=== PATIENT | male | born 1935 | race Caucasian/White ===

== ENCOUNTER → 2019-09-30 13:40 | Outpatient (BNVA) | payer MEDICARE, SELFPAY | PROVIDERS: PCP Family Medicine; Referring Provider Family Medicine; Visit Provider Nurse Practitioner Family | DX: R31.9 Hematuria, unspecified (principal); R97.20 Elevated prostate specific antigen [PSA]; R39.9 Unspecified symptoms and signs involving the genitourinary system | CPT/HCPCS: 81001 ==

== ENCOUNTER → 2019-11-10 10:54 | Outpatient (BNVA) | payer MEDICARE, SELFPAY | PROVIDERS: PCP Family Medicine; Visit Provider Urology | DX: R97.20 Elevated prostate specific antigen [PSA] (principal); R31.9 Hematuria, unspecified; N40.1 Benign prostatic hyperplasia with lower urinary tract symptoms | CPT/HCPCS: 81001; 84153 ==

== ENCOUNTER 2019-12-28 11:20 | Emergency (ER) | payer MEDICARE, SELFPAY ==
[2019-12-28 11:39] VITALS: BP 160/76; PULSE 90; RESP 14; TEMP 37.1; O2SAT 98; BMI 25.0
--- NOTE | 2019-12-28 11:43 | XR_ITS ---
WS: [id number] Exam: XR chest 2V* [id number] Date/Time of Exam: 12/28/2019 12:00 PM Reason For Exam: COUGH Findings: No priors. The lungs are clear and fully expanded. Normal cardiomediastinal structures and bony elements. Calcif ied mediastinal lymph nodes are noted. XR/XR chest 2V* [id number] IMPRESSION: 1. No acute cardiopulmonary finding.
--- NOTE | 2019-12-28 13:00 | ED_ITS ---
HPI - General Adult General: Chief complaint: General Medical Stated complaint: Upper respristory Time Seen by Provider: 12/28/19 12:58 Source: patient Mode of arrival: ambulatory Limitations: no limitations History of Present Illness: HPI narrative: 84-year-old male states been having sinus pain and nasal congestion over the last week. He states he gets sinus infections every year. He has been taking Mucinex [id number] with minimal improvement. He states he typically has to take azithromycin. He denies any fever. Has had a very slight cough. Denies any worsening or improving factors. He denies any chest pain is no distress. Associated symptoms: Deny chest pain, dyspnea, headache(s), nausea, rash or vomiting Review of Systems Const: Denies: fever(s), chills, body aches or change in appetite Eyes: Denies: blurry vision or eye discomfort ENMT: Reports: nasal congestion and sinus pain Card: Denies: chest pain Resp: Denies: dyspnea GI: Denies: abdominal pain, nausea, vomiting or diarrhea : Denies: dysuria Musc: Denies: neck pain or back pain Skin/Breast: Denies: rash Neuro: Denies: headache(s) Psych: Denies: depression Shawn/Lymph: Denies: easy bruising All/Imm: Denies: urticaria PFSH ED PFSH: Medical History Elevated PSA Hematuria Hypercholesteremia Family History Other Cancer Stroke Social History Smoking and tobacco status: never smoked Alcohol intake: never Adopted: No Caregiver/support person: No Lives independently: No Household members: children Marital status: / Current occupational status: retired Physical Exam Const: COMMON NORMALS: no acute distress, patient oriented x3 and healthy appearing HENMT: COMMON NORMALS: normocephalic and atraumatic HEAD & SCALP: normocephalic and atraumatic Eye: COMMON NORMALS: Equal, round and reactive pupils present and EOMs intact bilaterally PUPIL: Yes Equal, round and reactive pupils present Neck/C-Spine: COMMON NORMALS: full ROM and supple Chest: COMMONS NORMALS: normal inspection of the chest and normal palpation of entire chest wall Resp: COMMON NORMALS: normal respiratory effort, No retractions, No use of accessory muscles and clear to auscultation bilaterally AUSCULTATION: clear to auscultation bilaterally Cardio: COMMON NORMALS: regular rate, regular rhythm and No murmurs present (Cardio) RATE: regular rate RHYTHM: regular rhythm GI: COMMON NORMALS: Normal to inspection, nondistended, normoactive bowel sounds present, Soft to palpation, non-tender and no masses PALPATION: Yes Soft to palpation Extremity: COMMON NORMALS: normal to inspection and full ROM Neuro: COMMON NORMALS: patient oriented x3, moves all extremities and no focal motor deficits Psych: COMMON NORMALS: mental status grossly normal, Normal thought process present and cooperative THOUGHT PROCESS: Normal thought process present Skin: COMMON NORMALS: no rashes or lesions noted and no wounds GENERAL SKIN EXAM: no rashes or lesions noted Course Vital Signs: Vital signs: Vital Signs Temperature 98.8 F 12/28/19 11:39 Pulse Rate 90 12/28/19 11:39 Respiratory Rate 14 12/28/19 11:39 Blood Pressure 160/76 12/28/19 11:39 Pulse Oximetry 98 12/28/19 11:39 MDM - General Adult MDM Narrative: Medical decision making narrative: Patient presents with a likely sinus infection. Patient's x-ray here is negative and he is no signs of Covid. We will start him on azithromycin he is stable for discharge. He is to follow-up with his primary care doctor in 3 to 5 days and return if worsening. Imaging Data^: CXR: Attestation: I personally reviewed and interpreted this imaging study as follows: Radiologist's impression: [address] [address] XRay Report Signed Patient: Chance Lord Unit #: [id number] : [id number] Age/Sex: 84 / M ADM Date: 12/28/19 Loc: ER Room/Bed: Attending Dr: Ordering Provider/Ordering MD: Yodit Hardy MD Date of Service: 12/28/19 Procedure(s): XR chest 2V* [id number] Accession Number(s): [id number] Report Number: [id number] WS: [id number] Exam: XR chest 2V* [id number] Date/Time of Exam: 12/28/2019 12:00 PM Reason For Exam: COUGH Findings: No priors. The lungs are clear and fully expanded. Normal cardiomediastinal structures and bony elements. Calcified mediastinal lymph nodes are noted. XR/XR chest 2V* [id number] IMPRESSION: 1. No acute cardiopulmonary finding. Discharge Plan Discharge Patient Disposition: Home Clinical Impression: Sinusitis Qualifiers: Sinusitis location: frontal Chronicity: acute Condition: Stable Prescriptions: New azithromycin 250 mg tablet See Rx Instructions .ROUTE .COMPLEX Qty: 6 RF: 0 No Action aspirin [Adult Low Dose Aspirin] 81 mg tablet,delayed release (DR/EC) 81 mg PO DAILY RF: 0 omega-3 fatty acids 1,000 mg capsule 1,000 mg PO DAILY RF: 0 alprazolam 0.25 mg tablet 0.25 mg PO .AT NIGHT PRN (Reason: sleep) RF: 0 tamsulosin 0.4 mg capsule 0.4 mg PO DAILY RF: 0 Discharge Orders: Discharge Order (Routine); Ordered 12/28/19 Ordered By: Yodit Hardy Referrals: Graeme Louis MD [Primary Care Provider] - 1-3 days Discharge Diet: Advance as tolerated Discharge Activity: Resume usual activity Patient Instructions: Sinusitis (ED) Coding Level of Care Code ED Director Of Content And Programming for Pearl Mcgowan
== END 2019-12-28 13:07 | disposition home or self-care (01) ==
PROVIDERS: Emergency Provider Emergency Medicine; PCP Family Medicine
DX: J01.10 Acute frontal sinusitis, unspecified (principal); Z79.82 Long term (current) use of aspirin
CPT/HCPCS: 12345; 71046; 99281; 99282

== ENCOUNTER 2020-01-01 00:54 | Emergency (ER) | payer MEDICARE, SELFPAY ==
[2020-01-01] VITALS (7 sets, daily range): BP systolic 122–134; BP diastolic 63–81; PULSE 68–87; RESP 16–18; TEMP 36.5; O2SAT 94–97; BMI 25.0
[2020-01-01] MEDS: ondansetron 2 mg/ML SDV 2 mL 4 MG IVP (01:22)
--- NOTE | 2020-01-01 01:22 | ED_ITS ---
HPI - Abdominal Pain General: Chief Complaint: Abdominal Pain Stated Complaint: stomach pain, ingested soap about a week ago Time Seen by Provider: 01/01/20 01:09 Source: patient Mode of arrival: ambulatory Limitations: no limitations History of Present Illness: HPI narrative: Mr. Lord is a very nice 84-year-old male who comes in complaining of abdominal pain for about a week and a half. He states he accidentally swallowed a mouthful of hand soap thinking it was mouthwash and it burned the back of his throat and mouth. Since that time though the patient has progressively gotten worse with just generalized abdominal pain. He denies any nausea or vomiting and he denies diarrhea. States he has had a fever up to 103 but he felt this was due to his sinuses. He did take a Z-Simba for sinusitis. Denies any headache, neck pain or stiffness, chest pain, shortness of breath, cough, loss of sense of taste or smell. Patient denies any back pain or burning when he urinates. He states that he has no appetite so he is hardly been eating or drinking anything secondary to his abdominal pain. He is unaware of any other exacerbating or alleviating factors and he denies any other complaints. Associated Symptoms: Denies chills, coffee ground emesis, constipation, GI cramping, diarrhea, dysuria, fever(s), heartburn, hematochezia, hematuria, hematemesis, melena, nausea, syncope and vomiting Review of Systems Const: Denies: fever(s), chills, body aches, fatigue, malaise or diaphoresis Eyes: Denies: change in vision, blurry vision, photophobia, eye discomfort, eye discharge, eye redness or yellow eyes ENMT: Denies: throat pain, odynophagia, hoarseness, swelling of lips/tongue, ear or mastoid pain, ear discharge, change in hearing or nasal discharge Card: Denies: chest pain, palpitations, irregular heart rhythm, edema, lightheadedness, syncope, pre-syncope, dyspnea on exertion or orthopnea Resp: Denies: dyspnea, productive cough, non-productive cough, wheezing, hemoptysis or chest congestion GI: Denies: abdominal pain, nausea, vomiting, hematemesis, coffee ground emesis, heartburn, diarrhea, constipation, GI cramping, hematochezia or melena : Denies: flank pain, dysuria, urinary frequency, urinary urgency or hematuria Musc: Denies: neck pain, back pain, extremity pain, extremity swelling, joint pain, joint swelling, joint redness, joint warmth or joint stiffness Skin/Breast: Denies: rash, pruritus, erythema, skin pain or skin tenderness Neuro: Denies: headache(s), numbness in extremities, weakness in extremities, sensory changes, lack of coordination, difficulty walking, dizziness, vertigo, confusion, Slurred speech present or seizure-like activity Shawn/Lymph: Denies: easy bruising, easy bleeding, petechiae, purpura or enlarged lymph nodes All/Imm: Denies: urticaria, throat swelling, tongue swelling, facial swelling or acute wheezing PFSH ED PFSH: Medical History Elevated PSA Hematuria Hypercholesteremia Family History Other Cancer Stroke Social History Smoking and tobacco status: never smoked Alcohol intake: never Adopted: No Caregiver/support person: No Lives independently: No Household members: children Marital status: / Current occupational status: retired Physical Exam Const: COMMON NORMALS: no acute distress, patient oriented x3, no limitations and alert GENERAL APPEARANCE: cooperative HENMT: COMMON NORMALS: normocephalic, atraumatic, external ears normal, EAC's normal and Normal external nose present HEAD & SCALP: normal to inspection, normocephalic and atraumatic FACE & SINUS: normal facial exam and face symmetric NOSE: Normal external nose present and Normal nares present EXTERNAL EAR: Yes external ears normal EXTERNAL AUDITORY CANAL: EAC's normal MOUTH: Normal oral and palatal mucosa present, lip normal and tongue normal Eye: COMMON NORMALS: Equal, round and reactive pupils present and conjunctivae normal GENERAL EYE: appearance normal, both eyes and all related structures ALIGNMENT: Yes alignment normal PERIORBITAL: periorbital findings normal EYELID: eyelids normal CONJUNCTIVA: Yes conjunctivae normal SCLERA: sclerae normal PUPIL: Yes Equal, round and reactive pupils present Neck/C-Spine: COMMON NORMALS: full ROM, no lymphadenopathy, supple, no meningeal signs and no JVD GENERAL: Yes normal visual inspection and Yes trachea midline Chest: COMMONS NORMALS: normal inspection of the chest and normal palpation of entire chest wall Resp: COMMON NORMALS: normal respiratory effort, No retractions, No use of accessory muscles and clear to auscultation bilaterally EFFORT & INSPECTION: Yes able to speak in complete sentences and Yes symmetric chest movement AUSCULTATION: clear to auscultation bilaterally, no crackles, no rales, no rhonchi and no wheezes Cardio: COMMON NORMALS: no JVD, regular rate, regular rhythm, S1 normal heart sound present and S2 normal heart sound present RATE: regular rate RHYTHM: regular rhythm HEART SOUNDS: S1 normal heart sound present, S2 normal heart sound present, no click, no gallops, no murmurs and no rubs GI: COMMON NORMALS: Soft to palpation and No hepatosplenomegaly present PALPATION: Yes Soft to palpation, Yes Tenderness to palpation present (GI), No Guarding due to palpation present (GI), No Rigid due to palpation, Yes No hepatosplenomegaly present, No Hernia present, No Palpable mass present and No Pulsatile mass present : COMMON NORMALS: Yes no CVA tenderness BLADDER/KIDNEY EXAM: Yes no CVA tenderness Back/Pelvis: COMMON NORMALS: no CVA tenderness, thoracic and lumbar spine normal to inspection, no thoracic nor lumbar tenderness and thoraco-lumbar ROM normal Extremity: COMMON NORMALS: normal to inspection, full ROM, capillary refill normal, no joint enlargement, no clubbing, cyanosis or edema and no calf tenderness Neuro: COMMON NORMALS: patient oriented x3, CN's II-XII intact bilaterally, moves all extremities, no focal motor deficits and no sensory deficits noted SENSORIUM/ORIENTATION: Yes alert MENINGEAL SIGNS: Yes no meningeal signs SPEECH: speech normal Psych: COMMON NORMALS: mental status grossly normal, Normal thought process present, cooperative, normal affect, speech normal and activity/motor behavior normal SPEECH: Yes normal speech THOUGHT PROCESS: Normal thought process present Skin: COMMON NORMALS: no rashes or lesions noted, turgor normal, no jaundice, no petechiae and no mottling GENERAL SKIN EXAM: no rashes or lesions noted and turgor normal Course Vital Signs: Vital signs: Vital Signs Temperature 97.7 F 01/01/20 01:03 Pulse Rate 76 01/01/20 04:36 Respiratory Rate 17 01/01/20 04:36 Blood Pressure 132/70 01/01/20 04:36 Pulse Oximetry 94 01/01/20 04:36 MDM - Abdominal Pain MDM Narrative: Medical decision making narrative: Chance is a very nice 84-year-old male comes in with multiple complaints. Ultimately his symptoms are felt to be due to the COVID-[address] reveals no evidence of PE and he only has mild pneumonitis. Patient was informed of the findings and he is surprised. He is not had a fever, cough, sore throat or shortness of breath. His biggest concern is he thought he was constipated. He still request something at home to help his bowels move. I will go and give him lactulose and I have instructed him to take it only as needed. We will send him home with a pulse oximeter and he understands to return if his pulse ox falls below 90%. This time he is in no acute distress and we have hydrated him here with IV fluids. I will send him home with nausea medicine as well. Lab Data: Attestation: I reviewed the patient's lab results. Labs: Lab Results 01/01/20 01/01/20 01/01/20 Range/Units 01:15 01:15 01:15 WBC 3.2 L (4.0-10.0) 10^3/ uL RBC 5.23 (4.1-5.3) 10^6/u L Hgb 15.6 (11.7-16.6) g/dL Hct 46.9 (42.0-52.0) % MCV 89.7 (80-94) fL MCH 29.8 (28.0-34.0) pg MCHC 33.3 (30.0-36.0) g/dL RDW 12.7 (12.1-15.1) % Plt Count 153 (130-400) 10^3/c mm MPV 9.0 (7.4-10.4) fL Neut % (Auto) 45.2 % Lymph % (Auto) 41.6 % [place] % (Auto) 11.7 % Eos % (Auto) 0.9 % Baso % (Auto) 0.3 % Neut # (Auto) 1.43 L (1.8-7.7) 10^3/u L Lymph # (Auto) 1.3 (0.8-4.8) 10^3/u L [place] # (Auto) 0.4 (0.2-0.9) 10^3/u L Eos # (Auto) 0.0 (0.0-0.8) 10^3/u L Baso # (Auto) 0.0 (0.0-0.1) 10^3/u L Nucleated RBC % (a uto) 0 % Nucleated RBCs # 0.0 /100WBC PT 13.60 (12.1-14.9) SECO NDS INR 1.01 (0.8-1.2) Fibrinogen 398 (174-498) mg/dL D-Dimer 0.71 H (0-0.59) ug/mIFE U Sodium 131 L (136-145) mmol/L Potassium 4.2 (3.5-5.1) mmol/L Chloride 96 L (98-107) mmol/L Carbon Dioxide 24 (22-29) mmol/L Anion Gap 15.2 (5-19) BUN 16 (8-23) mg/dL Creatinine 1.1 (0.7-1.2) mg/dL GFR Calculation Not Reportable Glucose 105 (65-115) mg/dL Calculated Osmolal ity 274 L (285-295) mOsm/k g Calcium 8.9 (8.5-10.5) mg/dL Magnesium 1.9 (1.7-2.3) mg/dL Total Bilirubin 1.1 (0.15-1.2) mg/dL AST 20 (0-40) U/L ALT 25 (0-41) U/L Alkaline Phosphata se 85 (40-130) IU/L Lactate Dehydrogen ase (135-225) U/L C-Reactive Protein (0.0-4.9) mg/L Total Protein 6.5 L (6.6-8.7) g/dL Albumin 4.2 (3.5-5.2) g/dL Globulin 2.3 (1.3-4.6) g/dL Lipase 25 (13-60) U/L Procalcitonin (0-0.5) ng/mL Urine Color (Yellow) Urine Appearance (CLEAR) Urine pH (5-7) Ur Specific Gravit y (1.005-1.030) Urine Protein (Negative) Urine Glucose (UA) (Normal) Urine Ketones (Negative) Urine Blood (Negative) Urine Nitrate (Negative) Urine Bilirubin (Negative) Urine Urobilinogen (Negative) mg/dL Ur Leukocyte Jessica ase (Negative) Urine RBC (0-2) /hpf Urine WBC (0-5) /hpf Ur Squamous Epith Cells (0-5) /hpf Amorphous Sediment Urine Bacteria (NONE) /hpf SARS-CoV-2 Ag (Rap id) (Negative) 01/01/20 01/01/20 01/01/20 Range/Units 01:15 01:30 04:15 WBC (4.0-10.0) 10^3/ uL RBC (4.1-5.3) 10^6/u L Hgb (11.7-16.6) g/dL Hct (42.0-52.0) % MCV (80-94) fL MCH (28.0-34.0) pg MCHC (30.0-36.0) g/dL RDW (12.1-15.1) % Plt Count (130-400) 10^3/c mm MPV (7.4-10.4) fL Neut % (Auto) % Lymph % (Auto) % [place] % (Auto) % Eos % (Auto) % Baso % (Auto) % Neut # (Auto) (1.8-7.7) 10^3/u L Lymph # (Auto) (0.8-4.8) 10^3/u L [place] # (Auto) (0.2-0.9) 10^3/u L Eos # (Auto) (0.0-0.8) 10^3/u L Baso # (Auto) (0.0-0.1) 10^3/u L Nucleated RBC % (a uto) % Nucleated RBCs # /100WBC PT (12.1-14.9) SECO NDS INR (0.8-1.2) Fibrinogen (174-498) mg/dL D-Dimer (0-0.59) ug/mIFE U Sodium (136-145) mmol/L Potassium (3.5-5.1) mmol/L Chloride (98-107) mmol/L Carbon Dioxide (22-29) mmol/L Anion Gap (5-19) BUN (8-23) mg/dL Creatinine (0.7-1.2) mg/dL GFR Calculation Glucose (65-115) mg/dL Calculated Osmolal ity (285-295) mOsm/k g Calcium (8.5-10.5) mg/dL Magnesium (1.7-2.3) mg/dL Total Bilirubin (0.15-1.2) mg/dL AST (0-40) U/L ALT (0-41) U/L Alkaline Phosphata se (40-130) IU/L Lactate Dehydrogen ase 154 (135-225) U/L C-Reactive Protein 5.1 H (0.0-4.9) mg/L Total Protein (6.6-8.7) g/dL Albumin (3.5-5.2) g/dL Globulin (1.3-4.6) g/dL Lipase (13-60) U/L Procalcitonin 0.06 (0-0.5) ng/mL Urine Color Yellow (Yellow) Urine Appearance Sl hazy (CLEAR) Urine pH 6.5 (5-7) Ur Specific Gravit y 1.010 (1.005-1.030) Urine Protein Neg (Negative) Urine Glucose (UA) Norm (Normal) Urine Ketones Negative (Negative) Urine Blood Neg (Negative) Urine Nitrate Negative (Negative) Urine Bilirubin Neg (Negative) Urine Urobilinogen Norm (Negative) mg/dL Ur Leukocyte Jessica ase Negative (Negative) Urine RBC 0-4 H (0-2) /hpf Urine WBC 0-4 H (0-5) /hpf Ur Squamous Epith Cells 0-4 H (0-5) /hpf Amorphous Sediment Not Reportable Urine Bacteria Trace (NONE) /hpf SARS-CoV-2 Ag (Rap id) Positive H (Negative) Imaging Data ^: CTA chest With Abdomen Pelvis: Radiologist's impression: [address] [address] [address] Scan Report Signed Patient: Chance Lord #: [id number] : 1936Acct#:[id number] Age/Sex: 84 / MADM Date: 01/01/20 Loc: ERRoom/Bed: Attending Dr: Ordering Provider/Ordering MD: Sarah Jean-Baptiste DO Date of Service: 01/01/20 Procedure(s): CT angio chest w abd pel w con Accession Number(s): [id number] Report Number: [id number] PROCEDURE INFORMATION: Exam: CT Angiography Chest With Contrast Exam date and time: 01/01/2020 3:27 AM Age: 84 years old Clinical indication: Nausea; Abdominal pain; Generalized; Shortness of breath; Other: SOB; Patient HX: Covid+; Additional info: Shortness of breath abd pain TECHNIQUE: Imaging protocol: Computed tomographic angiography of the chest with intravenous contrast. 3D rendering (Not supervised by radiologist): MIP and/or 3D reconstructed images were created by the technologist. Radiation optimization: All CT scans at this facility use at least one of these dose optimization techniques: automated exposure control; mA and/or kV adjustment per patient size (includes targeted exams where dose is matched to clinical indication); or iterative reconstruction. Contrast material: OMNI 350; Contrast volume: 95 ml; Contrast route: INTRAVENOUS (IV); COMPARISON: CR XR chest 2V* [id number] 12/28/2019 12:09 PM RADIATION DOSE METRICS: Total DLP (mGy-cm): 1365.47 FINDINGS: Pulmonary arteries: Normal. No pulmonary emboli. Aorta: Unremarkable. No aortic aneurysm. No aortic dissection. Lungs: A calcified 0.8 mm granuloma seen in the right upper lobe. There are patchy ground-glass opacities present in the left upper lobe and linear and ground-glass opacities present in the lung bases bilaterally, findings that may represent a bilateral pneumonitis and/or atelectasis. There is some bilateral bronchiectasis. Pleural space: Unremarkable. No pneumothorax. No pleural effusion. Heart: Unremarkable. No cardiomegaly. No pericardial effusion. Lymph nodes: Unremarkable. No enlarged lymph nodes. Bones/joints: Unremarkable. No acute fracture. Soft tissues: Unremarkable. IMPRESSION: Patchy ground-glass opacities in the left upper lobe and some strandy and patchy ground-glass opacities present in the lung bases bilaterally, findings that could represent bilateral pneumonitis or atelectasis. Imaging features can be seen with COVID-19 pneumonia, though are nonspecific and can occur with a variety of infectious and noninfectious processes. (Reference: Asher) REFERENCES: Asher Baker et al., Radiological Society of [place] Expert Consensus Statement on Reporting Chest CT Findings Related to COVID-19. Endorsed by the Society of Thoracic Radiology, the [place] [employer], and RSNA. Published May 26, 2019. PROCEDURE INFORMATION: Exam: CT Abdomen And Pelvis With Contrast Exam date and time: 01/01/2020 3:27 AM Age: 84 years old Clinical indication: Nausea; Abdominal pain; Generalized; Shortness of breath; Other: SOB; Patient HX: Covid+; Additional info: Shortness of breath abd pain TECHNIQUE: Imaging protocol: Computed tomography of the abdomen and pelvis with intravenous contrast. Radiation optimization: All CT scans at this facility use at least one of these dose optimization techniques: automated exposure control; mA and/or kV adjustment per patient size (includes targeted exams where dose is matched to clinical indication); or iterative reconstruction. Contrast material: OMNI 350; Contrast volume: 95 ml; Contrast route: INTRAVENOUS (IV); COMPARISON: CR XR chest 2V* [id number] 12/28/2019 12:09 PM RADIATION DOSE METRICS: Total DLP (mGy-cm): 1365.47 FINDINGS: Mediastinal space: There is a small hiatal hernia present. Liver: Normal. No mass. Gallbladder and bile ducts: Normal. No calcified stones. No ductal dilation. Pancreas: Normal. No ductal dilation. Spleen: Punctate calcifications seen within the spleen compatible with calcified granulomas. Adrenal glands: Normal. No mass. Kidneys and ureters: There are small renal cortical cysts present on left, the largest measuring 1.7 cm. A solitary benign renal cysts seen in the lower pole of the right kidney measuring 1 cm. Stomach and bowel: Unremarkable. No obstruction. No mucosal thickening. Appendix: The appendix is visualized and is normal in configuration. Intraperitoneal space: Unremarkable. No free air. No significant fluid collection. Vasculature: Unremarkable. No abdominal aortic aneurysm. Lymph nodes: Unremarkable. No enlarged lymph nodes. Urinary bladder: Unremarkable as visualized. Reproductive: Unremarkable as visualized. Bones/joints: Unremarkable. No acute fracture. Soft tissues: Unremarkable. CT/CT angio chest w abd pel w con IMPRESSION: 1. Bilateral benign renal cysts, the largest seen the left measuring 1.7 cm. No further workup needed. 2. Small hiatal hernia 3. Normal appendix COMMENTS: Consistent with the [place] [employer]'s Incidental Findings Committee white paper (J Am Mil Radiol 2018): Any incidental renal lesion less than 1 cm or classified as too small to characterize, or any incidental cystic renal lesion characterized as simple-appearing, is likely benign. No follow-up imaging is recommended for these lesions per consensus recommendations based on imaging criteria. Radiation Dose CTDIVOL = (mGy): DLP = 1365.47~1365.47 (mGy-cm) Dictated By:Colton Smart MD Signed By:Colton Smart MDSigned Date/Time:01/01/20435 DD/ 4 Discharge Plan Discharge Patient Disposition: Home Clinical Impression: Viral pneumonitis Abdominal pain Qualifiers: Abdominal location: generalized Qualified Code(s): R10.84 - Generalized abdominal pain Condition: Stable Prescriptions: New Zofran 4 mg tablet 4 mg PO Q6H PRN (Reason: nausea and vomiting) Qty: 20 RF: 0 lactulose 10 gram/15 mL (15 mL) solution 10 gm PO DAILY PRN (Reason: constipation) Qty: 600 RF: 0 No Action aspirin [Adult Low Dose Aspirin] 81 mg tablet,delayed release (DR/EC) 81 mg PO DAILY RF: 0 omega-3 fatty acids 1,000 mg capsule 1,000 mg PO DAILY RF: 0 alprazolam 0.25 mg tablet 0.25 mg PO .AT NIGHT PRN (Reason: sleep) RF: 0 tamsulosin 0.4 mg capsule 0.4 mg PO DAILY RF: 0 azithromycin 250 mg tablet See Rx Instructions .ROUTE .COMPLEX Qty: 6 RF: 0 Discharge Orders: Discharge Order (Routine); Ordered 01/01/20 Ordered By: Sarah Jean-Baptiste Referrals: Graeme Louis MD [Primary Care Provider] - 1-3 days Discharge Diet: Advance as tolerated Discharge Activity: Increase activity as tolerated Patient Instructions: Viral Pneumonia (ED), Acute Abdominal Pain (ED) Activity Restrictions/Additional Instructions: Please return to the ER immediately for any of the signs or symptoms listed on your discharge instruction sheets, worsening/changing of your symptoms, you are not getting better as quickly as expected, or for ANY other cause or concerns. Monitor your pulse ox at home as you were shown by your nurse here. If your oxygen level goes below 90% you need to return to the ER for recheck. Be certain to keep yourself well-hydrated. Only use the lactulose to move your bowels as absolutely necessary. Follow-up with Dr. Louis or contact the health department about when you can come out of quarantine but until they clear you stay at home and keep yourself away from others as best as possible. Coding Level of Care Code ED [facility] Scientist for Chg Fwd Exam Comprehensive
[2020-01-01] MEDS: morphine 4 mg/mL SDV 1 mL IVP (01:23)
[2020-01-01] MEDS: sodium chloride 0.9% 1,000 ML 999 ML IV ×2 (01:34→04:15)
[2020-01-01 01:39] LABS: Basophils % 0.3 %; Eosinophils % 0.9 %; Hematocrit 46.9 % (42.0-52.0); Hemoglobin 15.6 g/dL (11.7-16.6); Lymphocytes # 1.3 10^3/uL (0.8-4.8); Lymphocytes % 41.6 %; Mean Corpuscular HGB Conc 33.3 g/dL (30.0-36.0); Mean Corpuscular Hemoglobin 29.8 pg (28.0-34.0); Mean Corpuscular Volume 89.7 fL (80-94); Monocytes # 0.4 10^3/uL (0.2-0.9); Monocytes % 11.7 %; Neutrophils # 1.43 10^3/uL (1.8-7.7); Neutrophils % 45.2 %; Nucleated Red Blood Cells % 0 %; Platelet Count 153 10^3/cmm (130-400); Red Blood Count 5.23 10^6/uL (4.1-5.3); Red Cell Distribution Width 12.7 % (12.1-15.1); White Blood Count 3.2 10^3/uL (4.0-10.0)
[2020-01-01 01:50] LABS: Alanine Aminotransferase 25 U/L (0-41); Albumin Level 4.2 g/dL (3.5-5.2); Alkaline Phosphatase 85 IU/L (40-130); Anion Gap 15.2 (5-19); Aspartate Amino Transferase 20 U/L (0-40); Blood Urea Nitrogen 16 mg/dL (8-23); Calcium 8.9 mg/dL (8.5-10.5); Carbon Dioxide 24 mmol/L (22-29); Chloride 96 mmol/L (98-107); Globulin 2.3 g/dL (1.3-4.6); Glucose 105 mg/dL (65-115); Lipase 25 U/L (13-60); Magnesium 1.9 mg/dL (1.7-2.3); Osmolality Calculated 274 mOsm/kg (285-295); Potassium 4.2 mmol/L (3.5-5.1); Sodium 131 mmol/L (136-145); Total Bilirubin 1.1 mg/dL (0.15-1.2); Total Protein 6.5 g/dL (6.6-8.7)
[2020-01-01 02:17] LABS: SARS Covid-2 Antigen Positive (Negative)
--- NOTE | 2020-01-01 03:14 | CTR_ITS ---
PROCEDURE INFORMATION: Exam: CT Angiography Chest With Contrast Exam date and time: 01/01/2020 3:27 AM Age: 84 years old Clinical indication: Nausea; Abdominal pain; Generalized; Shortness of breath; Other: SOB; Patient HX: Covid+; Additional info: Shortness of breath abd pain TECHNIQUE: Imaging protocol: Computed tomographic angiography of the chest with intravenous contrast. 3D rendering (Not supervised by radiologist): MIP and/or 3D reconstructed images were created by the technologist. Radiation optimization: All CT scans at this facility use at least one of these dose optimization techniques: automated exposure control; mA and/or kV adjustment per patient size (includes targeted exams where dose is matched to clinical indication); or iterative reconstruction. Contrast material: OMNI 350; Contrast volume: 95 ml; Contrast route: INTRAVENOUS (IV); COMPARISON: CR XR chest 2V* [id number] 12/28/2019 12:09 PM RADIATION DOSE METRICS: Total DLP (mGy-cm): 1365.47 FINDINGS: Pulmonary arteries: Normal. No pulmonary emboli. Aorta: Unremarkable. No aortic aneurysm. No aortic dissection. Lungs: A calcified 0.8 mm granuloma seen in the right upper lobe. There are patchy ground-glass opacities present in the left upper lobe and linear and ground-glass opacities present in the lung bases bilaterally, findings that may represent a bilateral pneumonitis and/or atelectasis. There is some bilateral bronchiectasis. Pleural space: Unremarkable. No pneumothorax. No pleural effusion. Heart: Unremarkable. No cardiomegaly. No pericardial effusion. Lymph nodes: Unremarkable. No enlarged lymph nodes. Bones/joints: Unremarkable. No acute fracture. Soft tissues: Unremarkable. IMPRESSION: Patchy ground-glass opacities in the left upper lobe and some strandy and patchy ground-glass opacities present in the lung bases bilaterally, findings that could represent bilateral pneumonitis or atelectasis. Imaging features can be seen with COVID-19 pneumonia, though are nonspecific and can occur with a variety of infectious and noninfectious processes. (Reference: Asher) REFERENCES: kenny Vergara al., Radiological Society of [place] Expert Consensus Statement on Reporting Chest CT Findings Related to COVID-19. Endorsed by the Society of Thoracic Radiology, the [place] [employer], and RSNA. Published May 26, 2019. PROCEDURE INFORMATION: Exam: CT Abdomen And Pelvis With Contrast Exam date and time: 01/01/2020 3:27 AM Age: 84 years old Clinical indication: Nausea; Abdominal pain; Generalized; Shortness of breath; Other: SOB; Patient HX: Covid+; Additional info: Shortness of breath abd pain TECHNIQUE: Imaging protocol: Computed tomography of the abdomen and pelvis with intravenous contrast. Radiation optimization: All CT scans at this facility use at least one of these dose optimization techniques: automated exposure control; mA and/or kV adjustment per patient size (includes targeted exams where dose is matched to clinical indication); or iterative reconstruction. Contrast material: OMNI 350; Contrast volume: 95 ml; Contrast route: INTRAVENOUS (IV); COMPARISON: CR XR chest 2V* [id number] 12/28/2019 12:09 PM RADIATION DOSE METRICS: Total DLP (mGy-cm): 1365.47 FINDINGS: Mediastinal space: There is a small hiatal hernia present. Liver: Normal. No mass. Gallbladder and bile ducts: Normal. No calcified stones. No ductal dilation. Pancreas: Normal. No ductal dilation. Spleen: Punctate calcifications seen within the spleen compatible with calcified granulomas. Adrenal glands: Normal. No mass. Kidneys and ureters: There are small renal cortical cysts present on left, the largest measuring 1.7 cm. A solitary benign renal cysts seen in the lower pole of the right kidney measuring 1 cm. Stomach and bowel: Unremarkable. No obstruction. No mucosal thickening. Appendix: The appendix is visualized and is normal in configuration. Intraperitoneal space: Unremarkable. No free air. No significant fluid collection. Vasculature: Unremarkable. No abdominal aortic aneurysm. Lymph nodes: Unremarkable. No enlarged lymph nodes. Urinary bladder: Unremarkable as visualized. Reproductive: Unremarkable as visualized. Bones/joints: Unremarkable. No acute fracture. Soft tissues: Unremarkable. CT/CT angio chest w abd pel w con IMPRESSION: 1. Bilateral benign renal cysts, the largest seen the left measuring 1.7 cm. No further workup needed. 2. Small hiatal hernia 3. Normal appendix COMMENTS: Consistent with the [place] [employer]'s Incidental Findings Committee white paper (J Am Mil Radiol 2018): Any incidental renal lesion less than 1 cm or classified as too small to characterize, or any incidental cystic renal lesion characterized as simple-appearing, is likely benign. No follow-up imaging is recommended for these lesions per consensus recommendations based on imaging criteria. Radiation Dose CTDIVOL = (mGy): DLP = 1365.47~1365.47 (mGy-cm)
[2020-01-01 03:15] LABS: Fibrinogen 398 mg/dL (174-498); INR 1.01 (0.8-1.2)
[2020-01-01 03:18] LABS: D Dimer 0.71 ug/mIFEU (0-0.59)
[2020-01-01 03:23] LABS: Procalcitonin 0.06 ng/mL (0-0.5)
[2020-01-01 03:35] LABS: C Reactive Protein 5.1 mg/L (0.0-4.9); Lactate Dehydrogenase 154 U/L (135-225)
[2020-01-01] MEDS: iohexol 350 mg/mL 100 mL Btl IV (04:16)
[2020-01-01 04:47] LABS: Bilirubin Urine Neg (Negative); Blood Urine Neg (Negative); Glucose Urine UA Norm (Normal); Ketones Urine Negative (Negative); Leukocyte Esterase Urine Negative (Negative); Nitrate Urine Negative (Negative); Protein Urine Neg (Negative); Urine Appearance SL Hazy (CLEAR); Urine Color Yellow (Yellow); Urobilinogen Urine Norm (Negative); pH Urine 6.5 (5-7)
[2020-01-01 04:49] LABS: Add Urine Culture? No; Bacteria Urine TRACE /hpf; RBC Urine 0-4 /hpf (0-2); Squamous Epithelial Cell Urine 0-4 /hpf (0-5); WBC Urine 0-4 /hpf (0-5)
== END 2020-01-01 05:29 | disposition home or self-care (01) ==
PROVIDERS: Emergency Provider Emergency Medicine; PCP Family Medicine
DX: J12.9 Viral pneumonia, unspecified (principal); R10.84 Generalized abdominal pain; Z79.82 Long term (current) use of aspirin
CPT/HCPCS: 12345; 71275; 74177; 80053; 81001; 83615; 83690; 83735; 84145; 85025; 85378; 85384; 85610; 86140; 87426; 96361; 96374; 96375; 99283; 99284; J2270; J2405; J7030; Q9967

== ENCOUNTER 2021-11-08 06:53 | Outpatient (CLI) | payer MEDICARE, SELFPAY | END 2021-11-08 06:54 | disposition home or self-care (01) | LOC: LAB 06:58 | PROVIDERS: PCP Family Medicine; Visit Provider Urology | DX: R97.20 Elevated prostate specific antigen [PSA] (principal); N40.1 Benign prostatic hyperplasia with lower urinary tract symptoms | CPT/HCPCS: 36415; 81003; 84153; 99213 ==

== ENCOUNTER 2022-04-17 07:52 | Emergency (ER) | payer MEDICARE, SELFPAY ==
--- NOTE | 2022-04-17 07:53 | XRR_ITS ---
PROCEDURE INFORMATION: Exam: XR Chest Exam date and time: 04/17/2022 8:35 AM Age: 86 years old Clinical indication: Pain; Angina pectoris; Additional info: Chest pain TECHNIQUE: Imaging protocol: Radiologic exam of the chest. Views: 1 view. COMPARISON: CR XR chest 2V* [id number] 12/28/2019 12:09 PM FINDINGS: Lungs: Lungs are clear. Pleural spaces: There is no pleural effusion or pneumothorax. Heart/Mediastinum: There is an upper mediastinal calcification projecting over the trachea suggesting a calcified lymph node. Cardiomediastinal contours are unremarkable. Bones/joints: There is mild degenerative disease at both shoulders. No acute fracture. XR/XR chest 1V portable [id number] IMPRESSION: No acute findings.
[2022-04-17 07:56] VITALS: BP 150/75; PULSE 98; TEMP 35.9; O2SAT 95; BMI 25.8
[2022-04-17 08:00] VITALS: BP 135/56; PULSE 84; RESP 16; O2SAT 96
--- NOTE | 2022-04-17 08:07 | W.ED.GENADLT ---
HPI - General Adult General: Chief complaint: General Medical Stated complaint: Chest Pain, swelling, High Bloodpressure Time Seen by Provider: 04/17/22 07:53 Source: patient Mode of arrival: ambulatory Limitations: no limitations History of Present Illness: Patient is an 86-year-old male who presents to ED today with a complaint of left breast/chest pain that he has had over the past week. Patient states pain has been constant since onset. It does not radiate anywhere. He does not complain of shortness of breath or difficulty breathing. He states he began noticing swelling to the left breast about the same time that he began noticing pain. He has not noticed any overlying skin changes, erythema, or warmth. No nipple discharge. When asked about skin changes he does show me a lesion to his back that he is concerned with. Patient denies previous cardiac history. Onset (ago): day(s) Location: chest Radiation: non-radiation Severity: moderate Pain Consistency: constant Relieving factors: none Exacerbating factors: none Associated symptoms: Reports no associated symptoms and chest pain (L breast pain); Deny dyspnea, headache(s), malaise, nausea, palpitations, syncope or vomiting Treatments prior to arrival: none Review of Systems Const: Denies: fever(s), chills, body aches, change in appetite, change in weight, fatigue, malaise or night sweats Card: Reports: chest pain (L breast pain); Denies: palpitations, irregular heart rhythm, edema, swelling of feet/ankles, lightheadedness, syncope, pre-syncope, dyspnea on exertion, orthopnea, leg pain with exertion or acrocyanosis Resp: Denies: dyspnea or pain on inspiration GI: Denies: abdominal pain, nausea, vomiting or diarrhea Musc: Denies: neck pain, back pain, extremity pain or joint pain Skin/Breast: Reports: other (skin lesion on back) Neuro: Denies: headache(s), numbness in extremities, weakness in extremities or sensory changes [facility] ED PFSH: Medical History Elevated PSA Hematuria Hypercholesteremia Family History Other Cancer Stroke Social History Smoking and tobacco status: never smoked Alcohol intake: never Adopted: No Caregiver/support person: No Lives independently: No Household members: children Marital status: / Current occupational status: retired History of recent travel: No Physical Exam Const: COMMON NORMALS: no acute distress, average body habitus, patient oriented x3, no limitations, healthy appearing, alert and well nourished HENMT: COMMON NORMALS: normocephalic and atraumatic HEAD & SCALP: normal to inspection, normocephalic and atraumatic Eye: GENERAL EYE: appearance normal, both eyes and all related structures Neck/C-Spine: COMMON NORMALS: full ROM, no lymphadenopathy, supple and no meningeal signs Lymph: LYMPHATIC: no lymphadenopathy noted Chest: BREAST/AXILLA PALPATION: Yes no axillary lymphadenopathy and Yes abnormal palpation of the breast OTHER: pt has swelling to L breast when compared to R; tenderness with palpation with no obvious mass; no nipple retraction or discharge; no overlying skin changes noted Resp: COMMON NORMALS: normal respiratory effort and clear to auscultation bilaterally AUSCULTATION: clear to auscultation bilaterally Cardio: COMMON NORMALS: regular rate and regular rhythm RATE: regular rate RHYTHM: regular rhythm Extremity: COMMON NORMALS: normal to inspection, full ROM, capillary refill normal, no joint enlargement, no clubbing, cyanosis or edema, no calf tenderness and no pedal edema GENERAL: Yes normal exam except as noted Neuro: CHRISTOS COMA SCALE: document GCS findings Christos coma scale eye opening: Spontaneous Christos coma scale verbal response: Orientated [place] coma scale motor response: Obey commands Christos coma scale total score: 15 COMMON NORMALS: patient oriented x3, CN's II-XII intact bilaterally, moves all extremities, no focal motor deficits, no sensory deficits noted and gait normal SENSORIUM/ORIENTATION: Yes alert MENINGEAL SIGNS: Yes no meningeal signs Skin: NARRATIVE SKIN EXAM: firm 0.8cm erythematous hyperkeratotic lesion to superior L back suspicious for carcinoma Course Vital Signs: Vital signs: Vital Signs Temperature 96.6 F L 04/17/22 07:56 Pulse Rate 84 04/17/22 08:00 Respiratory Rate 16 04/17/22 08:00 Blood Pressure 135/56 04/17/22 08:00 Pulse Oximetry 96 04/17/22 08:00 Oxygen Delivery Me thod 04/17/22 08:00 MDM - General Adult Medical Decision Making Patient needs further evaluation of the lesion on his back as this could be consistent with a nodular basal cell vs cutaneous squamous cell carcinoma. He has an appointment with PCP tomorrow. Recommend he discuss with them for biopsy/referral to dermatology. He also needs further follow up in regards to his left breast pain/swelling. Most cases of breast cancer in men are painless and I do not appreciate a firm solid mass nor is there associated skin changes. This raises possibility of gynecomastia as etiology. He most likely will need mammogram imaging which can be ordered by PCP if they feel indicated. Cardiac workup initiated based on complaint of left chest pain/age/risk factors. This was negative. Lab Data 04/17/22 08:20 04/17/22 08:20 Radiology Impressions Chest X-Ray 04/17/22 07:53 IMPRESSION: No acute findings. Laboratory Results WBC 4.3 10^3/uL (4.0-10.0) 04/17/22 08:20 RBC 5.59 10^6/uL (4.1-5.3) H 04/17/22 08:20 Hgb 16.7 g/dL (11.7-16.6) H 04/17/22 08:20 Hct 50.4 % (42.0-52.0) 04/17/22 08:20 MCV 90.2 fl (80-94) 04/17/22 08:20 MCH 29.9 pg (28.0-34.0) 04/17/22 08:20 MCHC 33.1 g/dL (30.0-36.0) 04/17/22 08:20 RDW 13.2 % (12.1-15.1) 04/17/22 08:20 Plt Count 191 10^3/cmm (130-400) 04/17/22 08:20 MPV 8.8 fL (7.4-10.4) 04/17/22 08:20 Neut % (Auto) 46.2 % 04/17/22 08:20 Lymph % (Auto) 40.2 % 04/17/22 08:20 [place] % (Auto) 7.3 % 04/17/22 08:20 Eos % (Auto) 4.7 % 04/17/22 08:20 Baso % (Auto) 1.4 % 04/17/22 08:20 Neut # (Auto) 1.96 10^3/uL (1.8-7.7) 04/17/22 08:20 Lymph # (Auto) 1.7 10^3/uL (0.8-4.8) 04/17/22 08:20 [place] # (Auto) 0.3 10^3/uL (0.2-0.9) 04/17/22 08:20 Eos # (Auto) 0.2 10^3/uL (0.0-0.8) 04/17/22 08:20 Baso # (Auto) 0.1 10^3/uL (0.0-0.1) 04/17/22 08:20 Nucleated RBC % (auto) 0 % 04/17/22 08:20 Nucleated RBCs # 0.0 /100WBC 04/17/22 08:20 Sodium 140 mmol/L (136-145) 04/17/22 08:20 Potassium 4.1 mmol/L (3.5-5.1) 04/17/22 08:20 Chloride 103 mmol/L (98-107) 04/17/22 08:20 Carbon Dioxide 26 mmol/L (22-29) 04/17/22 08:20 Anion Gap 15.1 (5-19) 04/17/22 08:20 BUN 18 mg/dL (8-23) 04/17/22 08:20 Creatinine 1.1 mg/dL (0.7-1.2) 04/17/22 08:20 GFR Calculation Not Reportable 04/17/22 08:20 Glucose 90 mg/dL (65-115) 04/17/22 08:20 Calculated Osmolality 291 mOsm/kg (285-295) 04/17/22 08:20 Calcium 9.3 mg/dL (8.5-10.5) 04/17/22 08:20 Total Bilirubin 1.3 mg/dL (0.15-1.2) H 04/17/22 08:20 AST 17 U/L (0-40) 04/17/22 08:20 ALT 18 U/L (0-41) 04/17/22 08:20 Alkaline Phosphatase 80 U/L (40-130) 04/17/22 08:20 Troponin T Baseline 10 ng/L (0-15) 04/17/22 08:20 Total Protein 6.9 g/dL (6.6-8.7) 04/17/22 08:20 Albumin 4.2 g/dL (3.5-5.2) 04/17/22 08:20 Globulin 2.7 g/dL (1.3-4.6) 04/17/22 08:20 Discharge Plan Discharge Patient Disposition: Home Clinical Impression: Breast pain, left, Skin lesion of back Condition: Stable Prescriptions: No Action aspirin [Adult Low Dose Aspirin] 81 mg tablet,delayed release (DR/EC) 81 mg PO DAILY omega-3 fatty acids 1,000 mg capsule 1,000 mg PO DAILY vitamin A-vit C-vit E-zinc-Cu Tablet 1 tab PO DAILY alprazolam 0.25 mg tablet 0.25 mg PO .AT NIGHT PRN (Reason: sleep) tamsulosin 0.4 mg capsule 0.4 mg PO DAILY Zofran 4 mg tablet 4 mg PO Q6H PRN (Reason: nausea and vomiting) Qty: 20 0RF lactulose 10 gram/15 mL (15 mL) solution 10 gm PO DAILY PRN (Reason: constipation) Qty: 600 0RF azithromycin 250 mg tablet See Rx Instructions .ROUTE .COMPLEX Qty: 6 0RF Rx Instructions: take 500 mg today (day 1), then 250 mg for 4 days (days 2-5) Discharge Orders: Discharge ED (Routine); Ordered 04/17/22 Ordered By: Bethany Judge Referrals: Graeme Louis MD [Primary Care Provider] - Activity Restrictions/Additional Instructions: As we discussed you need to speak to your primary care provider Dr. Louis at your scheduled appointment tomorrow in regards to your left breast pain and swelling. This could include further evaluation with a mammogram if he feels indicated. You also need to speak with him in regards to the skin lesion on her back and discuss the possible need for biopsy/referral to dermatology. 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
--- NOTE | 2022-04-17 08:34 | ECG_ITS ---
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 Measurements Intervals [place] Rate: 78 P: 64 CT: 132 QRS: 62 QRSD: 90 T: 51 QT: 357 QTc: 407 Interpretive Statements SINUS RHYTHM No previous ECG available for comparison Electronically Signed On 04-17-2022 12:53:48 [employer] by Kimberlyn Rodríguez M.D. [id number]
[2022-04-17 08:41] LABS: Basophils # 0.1 10^3/uL (0.0-0.1); Basophils % 1.4 %; Eosinophils # 0.2 10^3/uL (0.0-0.8); Eosinophils % 4.7 %; Hematocrit 50.4 % (42.0-52.0); Hemoglobin 16.7 g/dL (11.7-16.6); Lymphocytes # 1.7 10^3/uL (0.8-4.8); Lymphocytes % 40.2 %; Mean Corpuscular HGB Conc 33.1 g/dL (30.0-36.0); Mean Corpuscular Hemoglobin 29.9 pg (28.0-34.0); Mean Corpuscular Volume 90.2 fl (80-94); Mean Platelet Volume 8.8 fL (7.4-10.4); Monocytes # 0.3 10^3/uL (0.2-0.9); Monocytes % 7.3 %; Neutrophils # 1.96 10^3/uL (1.8-7.7); Neutrophils % 46.2 %; Nucleated Red Blood Cells % 0 %; Platelet Count 191 10^3/cmm (130-400); Red Blood Count 5.59 10^6/uL (4.1-5.3); Red Cell Distribution Width 13.2 % (12.1-15.1); White Blood Count 4.3 10^3/uL (4.0-10.0)
[2022-04-17 09:32] LABS: Troponin(5th) Baseline 10 ng/L (0-15)
[2022-04-17 09:33] LABS: Alanine Aminotransferase 18 U/L (0-41); Albumin Level 4.2 g/dL (3.5-5.2); Alkaline Phosphatase 80 U/L (40-130); Anion Gap 15.1 (5-19); Aspartate Amino Transferase 17 U/L (0-40); Blood Urea Nitrogen 18 mg/dL (8-23); Calcium 9.3 mg/dL (8.5-10.5); Carbon Dioxide 26 mmol/L (22-29); Chloride 103 mmol/L (98-107); Globulin 2.7 g/dL (1.3-4.6); Glucose 90 mg/dL (65-115); Osmolality Calculated 291 mOsm/kg (285-295); Potassium 4.1 mmol/L (3.5-5.1); Sodium 140 mmol/L (136-145); Total Bilirubin 1.3 mg/dL (0.15-1.2); Total Protein 6.9 g/dL (6.6-8.7)
[2022-04-17 09:52] VITALS: PULSE 73; O2SAT 96
== END 2022-04-17 09:53 | disposition home or self-care (01) ==
PROVIDERS: Emergency Provider Physician Assistant; PCP Family Medicine
DX: N64.4 Mastodynia (principal); L98.9 Disorder of the skin and subcutaneous tissue, unspecified
CPT/HCPCS: 71045; 80053; 84484; 85025; 93005; 99285

== ENCOUNTER 2022-05-20 10:04 | Outpatient (CLI) | payer MEDICARE, SELFPAY ==
--- NOTE | 2022-05-20 10:15 | MM_ITS ---
WS: [id number] Bilateral diagnostic 3D tomosynthesis digital mammogram, 05/20/2022 Clinical Data: n62 Comparison: None. Findings: The male breast parenchymal pattern shows no abnormal tissue. There are no cysts or masses. There are no secondary signs of carcinoma. MM/[place] [id number] Impression: 1. Negative bilateral medial mammography. 2. Recommend clinical follow-up. BIRADS: 1-Negative FOLLOW UP: See Report The CAD car checker was used.
== END 2022-05-20 10:05 | disposition home or self-care (01) ==
PROVIDERS: PCP Family Medicine; Visit Provider Family Medicine
DX: N62 Hypertrophy of breast (principal)
CPT/HCPCS: 77062; G0279